=== PATIENT | female | born 1935 | race Caucasian/White ===

== ENCOUNTER → 2017-02-27 | Outpatient (CLI) | payer OTHER ==
[~2017-02-27] MED LIST: ACTOS PO; ADVIL200 M2 PO; ASPIRIN325 M1 PO; CIPRO PO; COZAAR100 MG PO; GABAPENTIN300 MG PO; GLIMEPIRIDE2 MG PO; HYDROCODONE-APA1 T56 PO; METOPROLOL TART25 MG PO; MIRALAX119 GM PO; MIRALAX17 GM PO; MUCINEX PO; MUCUS RELIEF C400 MG PO; NORCO 7.5/325 T1 TAB PO; OMEPRAZOLE20 M2 PO; OXYCODONE-ACET1 EACH PO; PROTONIX20 MG PO; RELAFEN PO; ROBAXIN PO; SERTRALINE HCL50 MG PO; SIMVASTATIN80 MG PO; TIROSINT88 MCG PO; VESICARE PO; VITAMIN B 6 DAILY
--- NOTE | ~2017-02-27 | MY25 ---
[facility] A Service of [facility] RADIOLOGY TEXT RESULTS PATIENT: MARIELENA MANDUJANO LOCATION: [facility] : 35 UNIT #: [id number] AGE: [address]: Mariaelena Crockett SEX: F ORDER DR: [id number] [facility] [address] [place], [place] [address] [id number] O MR#: [id number] Acc #: [id number] NAME: MARIELENA MANDUJANO : 1935 SEX: F STUDY DATE/TIME: 02/27/2017 15:22 UNIT: [facility] ROOM: STUDY DESCRIPTION: [facility] ANITAG W/ CAD UNI RT Attending Physician: Mariaelena Crockett A.P.R.N. Referring Physician: Mariaelena Crockett A.P.R.N. Ordering Physician: Mariaelena Crockett A.P.R.N. Primary Care Physician: Mariaelena Crockett A.P.R.N. MEDICAL IMAGING REPORT This report is preliminary unless electronic signature is present EXAM Right digital diagnostic mammogram CAD COMPARISON September 25, 2011 and June 18, 2005. INDICATIONS An 81-year female with history of left mastectomy for breast cancer presents for evaluation of the right breast. FINDINGS There are scattered fibroglandular densities in the right breast. No suspicious findings are seen in the right breast. IMPRESSION 1. Post left mastectomy for breast cancer. 2. No mammographic evidence malignancy in the right breast. Annual screen mammography is recommended for as long as the patient is in good health ([employer]). Findings were discussed with the patient upon termination of today's exam. Patients over the age of 40 are entered into a reminder system with target due date for the next mammogram. A result letter will also be sent to the patient. BIRADS: 2 Benign Finding Dictated by... Misael Valladares M.D. THIS IS AN ELECTRONICALLY VERIFIED REPORT [facility] A Service of [facility] RADIOLOGY TEXT RESULTS PATIENT: MARIELENA MANDUJANO LOCATION: [facility] : 35 UNIT #: [id number] AGE: [address]: Mariaelena Crockett SEX: F ORDER DR: Misael Valladares M.D. at 03/04/2017 12:10 PM LORRAINE/raghav TD: 02/27/2017 19:37 JOB #: [id number] MEDICAL IMAGING REPORT Page 1 of 1 COPY
== END | disposition home or self-care (01) ==
LOC: CMAM 14:30
DX: Z48.3 Aftercare following surgery for neoplasm (principal); Z90.12 Acquired absence of left breast and nipple; Z85.3 Personal history of malignant neoplasm of breast
CPT/HCPCS: G0206